=== PATIENT | female | born 1980 | race Caucasian/White ===

== ENCOUNTER 2016-11-20 16:32 | Emergency (ER) | payer BC, OTHER ==
[~2016-11-20 16:32] MED LIST: HYDR-2678 PO
[2016-11-20] MEDS ORDERED: FENTANYL PF 100 MCG/2 ML VIAL. IV ONE (17:15)
[2016-11-20] MEDS ORDERED: IV NORMAL SALINE 1000ML BAG 1,000 ML IV ONE (17:15)
[2016-11-20] MEDS ORDERED: ONDANSETRON PF 4 MG/2 ML VIAL. IV ONE (17:15)
[2016-11-20 17:50] LABS: BASO % 1 % (0-3); BILIRUBIN,URINE NEGATIVE (NEG); EOS % 2 % (0-3); GLUCOSE,URINE NEGATIVE (NEG); HEMATOCRIT 39.5 % (36.0-47.0); LYMPH # 1.7 x10^3/uL (1.0-4.8); LYMPH % 26 % (24-48); MEAN CORPUSCULAR HEMOGLOBIN 30 pg (25-35); MEAN CORPUSCULAR HGB CONC 33 g/dL (31-37); MEAN CORPUSCULAR VOLUME 90 fL (79-100); MONO % 6 % (0-9); NEUT % 66 % (31-73); NITRITE,URINE NEGATIVE (NEG); PLATELET COUNT 247 x10^3/uL (140-400); PROTEIN,URINE NEGATIVE (NEG-TRACE); RED BLOOD COUNT 4.37 x10^6/uL (3.50-5.40); RED CELL DISTRIBUTION WIDTH 14.2 % (11.5-14.5); UROBILINOGEN,URINE 0.2 mg/dL (0.2 mg/dL); WHITE BLOOD COUNT 6.4 x10^3/uL (4.0-11.0)
[2016-11-20 17:57] LABS: BACTERIA,URINE FEW /HPF (0-FEW); RBC,URINE RARE /HPF (0-2); SQUAMOUS EPITHELIAL CELL,UR MANY /LPF; WBC,URINE OCC /HPF (0-4)
[2016-11-20 18:01] LABS: CALCIUM 9.1 mg/dL (8.5-10.1); CREATININE 0.8 mg/dL (0.6-1.0); GFR 81.6; POTASSIUM 3.8 mmol/L (3.5-5.1)
[2016-11-20 18:05] LABS: NEG OBC SER NEG; POS OBC SER POS
[2016-11-20 18:08] LABS: ALBUMIN 3.9 g/dL (3.4-5.0); ALBUMIN/GLOBULIN RATIO 1.1 (1.0-1.7); TOTAL BILIRUBIN 0.2 mg/dL (0.2-1.0); TOTAL PROTEIN 7.5 g/dL (6.4-8.2)
[2016-11-20] MEDS ORDERED: HYDROMORPHONE 2 MG/ML VIAL. IV ONE (19:00)
--- NOTE | 2016-11-20 19:49 | RAD ---
PROCEDURE Transvaginal pelvic ultrasound. HISTORY Vaginal bleeding and pain. TECHNIQUE Real-time ultrasound imaging of the pelvis using transvaginal window is performed. COMPARISON CT abdomen pelvis without contrast October 20, 2015. FINDINGS At least 2 nabothian cysts are seen, larger measures 5 millimeters. There is IUD in appropriate position. The endometrial stripe is normal measuring 4 millimeters. The uterus measures 9.5 x 6.6 x 5.5 cm. No focal abnormality. No pelvic free fluid. The right ovary measures 3.7 x 1.8 x 1.7 cm. The left ovary measures 3.5 x 2.1 x 2 cm. Normal blood flow is seen in the ovaries. There are small follicles bilaterally. No evidence of adnexal mass. IMPRESSION 1. Normal blood flow in the ovaries. 2. IUD in appropriate position. 3. Small nabothian cysts. Electronically signed by: Zhou Petit MD (Nov 20, 2016 19:47:02)
[2016-11-20] MEDS ORDERED: HYDR-971 PO (20:10)
--- NOTE | 2016-11-20 20:10 | PHYS DOC ---
Past Medical History Past Medical History: Fibromyalgia, Other Additional Past Medical Histor: LUPUS, PCOS Past Surgical History: Tonsillectomy Alcohol Use: Rarely Drug Use: None Adult General Chief Complaint Chief Complaint: VAGINAL BLEEDING HPI HPI Patient is a 36 year old female who presents with vaginal bleeding since and abdominal pain and cramping for 4 days accompanied by nausea. Reports heavy bleeding three and four days ago and going thru 9 super tampons in 24 hours. States today is much less in amount and has used 3 tampons today. Denies fever, vomiting, urinary symptoms, palpitations, syncope, chest pain, shortness of breath. Reports Paragaurd IUD placed in May and concern that it may be in wrong place. Review of Systems Review of Systems Constitutional: Denies fever or chills Eyes: Denies change in visual acuity, redness, or eye pain HENT: Denies nasal congestion or sore throat Respiratory: Denies cough or shortness of breath Cardiovascular: No additional information not addressed in HPI GI: Denies vomiting, bloody stools or diarrhea. Nausea, abdominal cramping for 4 days : Denies dysuria or hematuria Musculoskeletal: Denies back pain or joint pain Integument: Denies rash or skin lesions [] Neurologic: Denies headache, focal weakness or sensory changes [] Endocrine: Denies polyuria or polydipsia [] Current Medications Current Medications Current Medications Medications (Trade) Dose Ordered Sig/[facility] Start Time Stop Time Status Last Admin Dose Admin Fentanyl Citrate (Fentanyl 2ml Vial) 50 mcg 1X ONCE 11/20/16 17:15 11/20/16 17:16 DC 11/20/16 17:48 50 MCG Hydromorphone HCl (Dilaudid) 1 mg 1X ONCE 11/20/16 19:00 11/20/16 19:01 DC 11/20/16 18:58 1 MG Ondansetron HCl 4 mg 4 mg 1X ONCE 11/20/16 17:15 11/20/16 17:16 DC 11/20/16 17:48 4 MG Sodium Chloride (Iv Sodium Chloride 0.9% 1000ml Bag) 1,000 ml @ 1,000 mls/hr 1X ONCE 11/20/16 17:15 11/20/16 18:14 DC 11/20/16 17:49 1,000 MLS/HR Allergies Allergies Allergies Coded Allergies Type Severity Reaction Last Updated Verified tramadol Allergy Severe SZ 10/20/15 Yes Iodine and Iodide Containing Produc Allergy Intermediate RASH 10/20/15 Yes azithromycin Allergy Intermediate RASH 10/20/15 Yes ibuprofen Allergy Mild STOMACHE PAIN 10/20/15 Yes Physical Exam Physical Exam Constitutional: Well developed, well nourished, no acute distress, non-toxic appearance. HENT: Normocephalic, atraumatic, bilateral external ears normal, oropharynx moist, no oral exudates, nose normal. Eyes: PERRLA, EOMI, conjunctiva normal, no discharge. Neck: Normal range of motion, no tenderness, supple, no stridor. Cardiovascular:Heart rate regular rhythm, no murmur Lungs & Thorax: Bilateral breath sounds clear to auscultation Abdomen: Bowel sounds normal, soft, no tenderness, no masses, no pulsatile masses. Vagina: No lesions internally or externally, Minimal dark blood noted, no erythema to cervix, no CMT Skin: Warm, dry, no erythema, no rash. Back: No tenderness, no CVA tenderness. Extremities: No tenderness, no cyanosis, no clubbing, ROM intact, no edema. Neurologic: Alert and oriented X 3, normal motor function, normal sensory function, no focal deficits noted. Psychologic: Affect normal, judgement normal, mood normal. [] Current Patient Data Vital Signs Vital Signs Date Time Temp Pulse Resp B/P Pulse Ox O2 Delivery O2 Flow Rate FiO2 11/20/16 20:20 76 135/86 99 Room Air 11/20/16 18:58 12 11/20/16 17:59 98.6 98.6 Lab Values Laboratory Tests Test 11/20/16 17:39 White Blood Count 6.4x10^3/uL (4.0-11.0) Red Blood Count 4.37x10^6/uL (3.50-5.40) Hemoglobin 13.0g/dL (12.0-15.5) Hematocrit 39.5% (36.0-47.0) Mean Corpuscular Volume 90fL (79-100) Mean Corpuscular Hemoglobin 30pg (25-35) Mean Corpuscular Hemoglobin Concent 33g/dL (31-37) Red Cell Distribution Width 14.2% (11.5-14.5) Platelet Count 247x10^3/uL (140-400) Neutrophils (%) (Auto) 66% (31-73) Lymphocytes (%) (Auto) 26% (24-48) Monocytes (%) (Auto) 6% (0-9) Eosinophils (%) (Auto) 2% (0-3) Basophils (%) (Auto) 1% (0-3) Neutrophils # (Auto) 4.3x10^3uL (1.8-7.7) Lymphocytes # (Auto) 1.7x10^3/uL (1.0-4.8) Monocytes # (Auto) 0.4x10^3/uL (0.0-1.1) Eosinophils # (Auto) 0.1x10^3/uL (0.0-0.7) Basophils # (Auto) 0.0x10^3/uL (0.0-0.2) Urine Collection Type Unknown Urine Color Yellow Urine Clarity Clear Urine pH 7.0 Urine Specific [place] <=1.005 Urine Protein Negativemg/dL (NEG-TRACE) Urine Glucose (UA) Negativemg/dL (NEG) Urine Ketones (Stick) Negativemg/dL (NEG) Urine Blood Large (NEG) Urine Nitrite Negative (NEG) Urine Bilirubin Negative (NEG) Urine Urobilinogen Dipstick 0.2mg/dL (0.2 mg/dL) Urine Leukocyte Esterase Negative (NEG) Urine RBC Rare/HPF (0-2) Urine WBC Occ/HPF (0-4) Urine Squamous Epithelial Cells Many/LPF Urine Bacteria Few/HPF (0-FEW) Sodium Level 143mmol/L (136-145) Potassium Level 3.8mmol/L (3.5-5.1) Chloride Level 106mmol/L (98-107) Carbon Dioxide Level 27mmol/L (21-32) Anion Gap 10 (6-14) Blood Urea Nitrogen 11mg/dL (7-20) Creatinine 0.8mg/dL (0.6-1.0) Estimated GFR (Cockcroft-Gault) 81.6 BUN/Creatinine Ratio 14 (6-20) Glucose Level 74mg/dL (70-99) Calcium Level 9.1mg/dL (8.5-10.1) Total Bilirubin 0.2mg/dL (0.2-1.0) Aspartate Amino Transferase (AST) 14U/L (15-37) L Alanine Aminotransferase (ALT) 21U/L (14-59) Alkaline Phosphatase 108U/L (46-116) Total Protein 7.5g/dL (6.4-8.2) Albumin 3.9g/dL (3.4-5.0) Albumin/Globulin Ratio 1.1 (1.0-1.7) Serum Test, Qualitative Negative (NEG) Laboratory Tests 11/20/16 17:39 Laboratory Tests 11/20/16 17:39 Microbiology 11/20/16 Wet Prep - Final, Complete EKG EKG [] Radiology/Procedures Radiology/Procedures [] Impressions: Dysmenorrhea Course & Med Decision Making Course & Med Decision Making Pertinent Labs and Imaging studies reviewed. (See chart for details) CBC without leukocytosis, bandemia, or anemia. UA without leukocyte esterase, nitrates, WBC. Wet [place] without clue cells, yeast or trich. Patient has tolerated po fluids during stay and has not had any episodes of vomiting. COntinues to remain afebrile. Given return precaustions and to follow up with her Copywriting Intern in 1-2 days US showed: 1. Normal blood flow in the ovaries. 2. IUD in appropriate position. 3. Small nabothian cysts. Dragon Disclaimer Dragon Disclaimer This electronic medical record was generated, in whole or in part, using a voice recognition dictation system. Departure Departure Impression: Primary Impression: Dysmenorrhea Disposition: 01 HOME, SELF-CARE Condition: STABLE Referrals: ROMAN OROZCO (PCP) Patient Instructions: Dysmenorrhea Additional Instructions: Take medication as prescribed. Follow up with your environmental scientist this week. return if any problems or concerns Scripts Hydrocodone/Apap 5-325 ([place] 5-325 Tablet)1 Each Tablet1 Tab PO PRN Q6HRS PRN PAIN #10 TAB Prov:NOMAN CHRISTIANSEN APRN 11/20/16 NOMAN CHRISTIANSEN APRN Nov 20, 2016 20:10
[2016-11-20 20:20] VITALS: BP 135/86
== END 2016-11-20 20:22 | disposition home or self-care (01) ==
LOC: ER 16:32
DX: N94.6 Dysmenorrhea, unspecified (principal); M79.7 Fibromyalgia; M32.9 Systemic lupus erythematosus, unspecified; E28.2 Polycystic ovarian syndrome; Z88.6 Allergy status to analgesic agent; Z88.1 Allergy status to other antibiotic agents; Z88.5 Allergy status to narcotic agent; Z88.8 Allergy status to other drugs, medicaments and biological substances
CPT/HCPCS: 36415; 76830; 80053; 81001; 84703; 85027; 87491; 87591; 96361; 96374; 96375; 99285; J1170; J2405; J3010; J7030; Q0111

== ENCOUNTER 2018-02-21 11:19 | Emergency (ER) | payer BC, OTHER ==
[2018-02-21] MEDS: fentaNYL PF VIAL 100 MCG/2 ML VIAL IV (11:45)
[2018-02-21] MEDS: IV NORMAL SALINE 1000ML BAG 1,000 ML IV (11:45)
[2018-02-21] MEDS: PROCHLORPERAZINE 10 MG/2 ML VIAL. IV (11:45)
[2018-02-21 11:48] LABS: URINE HCG POC HCG NEGATIVE (Negative)
[2018-02-21 11:58] LABS: ADD MAN DIFF? NO
[2018-02-21 12:02] LABS: BASO % 0 % (0-3); EOS # 0.1 x10^3/uL (0.0-0.7); EOS % 1 % (0-3); HEMATOCRIT 37.9 % (36.0-47.0); LYMPH # 1.8 x10^3/uL (1.0-4.8); LYMPH % 23 % (24-48); MEAN CORPUSCULAR HEMOGLOBIN 30 pg (25-35); MEAN CORPUSCULAR HGB CONC 34 g/dL (31-37); MEAN CORPUSCULAR VOLUME 88 fL (79-100); MONO # 0.4 x10^3/uL (0.0-1.1); MONO % 6 % (0-9); NEUT # 5.4 x10^3uL (1.8-7.7); NEUT % 70 % (31-73); PLATELET COUNT 255 x10^3/uL (140-400); RED BLOOD COUNT 4.29 x10^6/uL (3.50-5.40); RED CELL DISTRIBUTION WIDTH 14.5 % (11.5-14.5); WHITE BLOOD COUNT 7.6 x10^3/uL (4.0-11.0)
[2018-02-21 12:05] LABS: BILIRUBIN,URINE NEGATIVE (NEG); CLARITY,URINE CLEAR; COLOR,URINE YELLOW; GLUCOSE,URINE NEGATIVE (NEG); NITRITE,URINE NEGATIVE (NEG); PROTEIN,URINE NEGATIVE (NEG-TRACE); UROBILINOGEN,URINE 0.2 mg/dL (0.2 mg/dL)
[2018-02-21 12:12] LABS: ANION GAP 9 (6-14); BACTERIA,URINE MANY /HPF (0-FEW); BLOOD UREA NITROGEN 14 mg/dL (7-20); BUN/CREATININE RATIO 18 (6-20); CALCIUM 9.2 mg/dL (8.5-10.1); CARBON DIOXIDE 27 mmol/L (21-32); CHLORIDE 103 mmol/L (98-107); CREATININE 0.8 mg/dL (0.6-1.0); GFR 81.2; GLUCOSE 89 mg/dL (70-99); POTASSIUM 3.9 mmol/L (3.5-5.1); RBC,URINE OCC /HPF (0-2); SODIUM 139 mmol/L (136-145); SQUAMOUS EPITHELIAL CELL,UR MANY /LPF; WBC,URINE TNTC /HPF (0-4)
[2018-02-21 12:18] LABS: ALBUMIN 4.1 g/dL (3.4-5.0); ALBUMIN/GLOBULIN RATIO 1.2 (1.0-1.7); ALK PHOS 108 U/L (46-116); ALT (SGPT) 25 U/L (14-59); AST (SGOT) 13 U/L (15-37); LIPASE 118 U/L (73-393); TOTAL BILIRUBIN 0.4 mg/dL (0.2-1.0); TOTAL PROTEIN 7.5 g/dL (6.4-8.2)
[2018-02-21] MEDS ORDERED: CONTRAST GIVEN. MC (12:30)
[2018-02-21] MEDS: diphenhydrAMINE 50 MG/ML VIAL IVP (12:36)
[2018-02-21] MEDS: IOHEXOL 300 MG/ML 100ML VIAL. IV (12:45)
[2018-02-22 14:29] LABS: CHLAMYDIA PROBE Negative (Negative); GC PROBE Negative (Negative)
== END 2018-02-21 14:24 | disposition home or self-care (01) ==
LOC: ER 11:19
DX: K52.9 Noninfective gastroenteritis and colitis, unspecified (principal); N76.0 Acute vaginitis; B96.89 Other specified bacterial agents as the cause of diseases classified elsewhere; N39.0 Urinary tract infection, site not specified; N83.201 Unspecified ovarian cyst, right side; Z88.5 Allergy status to narcotic agent; Z88.1 Allergy status to other antibiotic agents; Z88.8 Allergy status to other drugs, medicaments and biological substances
CPT/HCPCS: 36415; 74177; 80053; 81001; 81025; 83690; 85025; 87086; 87491; 87591; 96361; 96374; 96375; 99285-25; J0780; J1200; J3010; J7030; Q0111; Q9967